=== PATIENT | female | born 1990 ===

== ENCOUNTER → 2017-09-05 | Outpatient (CLI) | payer BC ==
[~2017-09-05] MED LIST: HYDACE5 PO; IBUP800 PO; IRON150C; LEVSOD75 PO; OXYACE5T PO; PREN-16 PO; PROM25 PO
== END | disposition home or self-care (01) ==
LOC: LAB 17:18 → LAB SHORT 17:18
PROVIDERS: Obstetrics & Gynecology
DX: Z12.4 Encounter for screening for malignant neoplasm of cervix (principal)
CPT/HCPCS: G0123